=== PATIENT | female | born 1995 | race American Indian/Alaskan Native ===

== ENCOUNTER 2016-11-02 14:12 | Emergency (ER) | payer OTHER ==
[2016-11-02 19:12] LABS: Basophils % (Auto) 0.7 % (0.0-1.8); Eosinophils % (Auto) 0.2 % (0.0-4.3); Hemoglobin 11.9 gm/dl (10.1-14.3); Mean Corpuscular HGB Conc 31 % (30-34); Mean Corpuscular Hemoglobin 27 pg (28-32); Mean Corpuscular Volume 85 fl (79-97); Platelet Count 283 K/mm3 (140-440); Red Blood Count 4.47 M/mm3 (3.65-5.03); Red Cell Distribution Width 12.3 % (13.2-15.2); White Blood Count 11.3 K/mm3 (4.5-11.0)
[2016-11-02 19:28] LABS: Anion Gap 21 mmol/L; BUN/Creatinine Ratio 18.57; Blood Urea Nitrogen 13 mg/dL (7-17); Calcium 9.8 mg/dL (8.4-10.2); Carbon Dioxide 25 mmol/L (22-30); Chloride 98.5 mmol/L (98-107); Glucose 78 mg/dL (65-100); Potassium 3.5 mmol/L (3.6-5.0); Sodium 141 mmol/L (137-145)
[2016-11-02] MEDS ORDERED: MOTRIN PO ONE (19:53)
[2016-11-02] MEDS ORDERED: DUONEB 0.5 MG-3 MG/3 ML SOLN IH ONE (19:53)
--- NOTE | 2016-11-02 20:31 | Emergency Department Report ---
ED Chest Pain HPI - General Chief Complaint: Chest Pain Stated Complaint: CHEST PAIN Time Seen by Provider: 11/02/16 18:20 Source: patient Mode of arrival: Ambulatory Limitations: No Limitations - History of Present Illness Initial Comments: 21-year-old female past medical history asthma presents with complaint of 2 days of substernal chest pain. Patient states the pain is slightly worse when she takes deep breath. Denies any fever no chills denies any cough denies any shortness of breath palpitations. Patient states that pain has been constant since yesterday. Denies any trauma to chest. No nausea no vomiting no diarrhea no dysuria. Patient states she is on oral contraceptives. Onset/Timin -: days(s) Onset: during rest Pain Location: substernal Pain Radiation: none Severity: moderate Severity scale (0 -10): 5 Quality: sharp Consistency: constant Improves With: nothing Worsens With: nothing Aspirin use within the Past 7 Days: (0) No - Related Data On Oral Contraceptives: Yes Previous Rx's Medication Instructions Recorded Last Taken Type Acetaminophen/Codeine [Tylenol #3] 1 tab PO Q6H PRN #20 tab 07/09/15 Unknown Rx Cyclobenzaprine [Flexeril 10 MG 10 mg PO TID PRN #30 tablet 07/09/15 Unknown Rx TAB] Ibuprofen [Motrin] 600 mg PO Q8H PRN #50 tablet 07/09/15 Unknown Rx Albuterol Sulfate [Ventolin HFA] 2 puff IH Q4H PRN #1 hfa.aer.ad 01/03/16 Unknown Rx Azithromycin [Zithromax] 250 mg PO DAILY #1 pkg 01/03/16 Unknown Rx Fluticasone [Flonase] 2 spray NS QDAY #1 bottle 01/03/16 Unknown Rx Loratadine [Claritin] 10 mg PO DAILY #30 tablet 01/03/16 Unknown Rx Prednisone [predniSONE 10 mg 10 mg PO .TAPER #1 tab.ds.pk 01/03/16 Unknown Rx (6-Day Pack, 21 Tabs)] Promethazine /Codeine 5 ml PO Q6H PRN #150 ml 01/03/16 Unknown Rx [Phenergan/Codeine 6.25-10 mg/5 ml] ALBUTEROL Inhaler [ProAir HFA 2 puff IH QID PRN #1 inhalation 11/02/16 Unknown Rx Inhaler] Ibuprofen [Motrin] 600 mg PO Q8H PRN #30 tablet 11/02/16 Unknown Rx Allergies Allergy/AdvReac Type Severity Reaction Status Date / Time seafood Allergy Swelling Uncoded 11/02/16 14:29 ANA score - Ana Score Age > 65: (0) No Aspirin use within the Past 7 Days: (0) No 3 or more CAD Risk Factors: (0) No 2 or more Angina events in past 24 hrs: (0) No Known CAD with more than 50% Stenosis: (0) No Elevated Cardiac Markers: (0) No ST Deviation Greater than 0.5mm: (0) No ANA Score: 0 ED Review of Systems ROS: Stated complaint: CHEST PAIN Other details as noted in HPI ED Past Medical Hx - Past Medical History Hx Asthma: Yes - Social History Smoking Status: Never Smoker Substance Use Type: None - Medications Home Medications: Home Medications Medication Instructions Recorded Confirmed Last Taken Type Acetaminophen/Codeine [Tylenol #3] 1 tab PO Q6H PRN #20 tab 07/09/15 Unknown Rx Cyclobenzaprine [Flexeril 10 MG 10 mg PO TID PRN #30 tablet 07/09/15 Unknown Rx TAB] Ibuprofen [Motrin] 600 mg PO Q8H PRN #50 tablet 07/09/15 Unknown Rx Albuterol Sulfate [Ventolin HFA] 2 puff IH Q4H PRN #1 hfa.aer.ad 01/03/16 Unknown Rx Azithromycin [Zithromax] 250 mg PO DAILY #1 pkg 01/03/16 Unknown Rx Fluticasone [Flonase] 2 spray NS QDAY #1 bottle 01/03/16 Unknown Rx Loratadine [Claritin] 10 mg PO DAILY #30 tablet 01/03/16 Unknown Rx Prednisone [predniSONE 10 mg 10 mg PO .TAPER #1 tab.ds.pk 01/03/16 Unknown Rx (6-Day Pack, 21 Tabs)] Promethazine /Codeine 5 ml PO Q6H PRN #150 ml 01/03/16 Unknown Rx [Phenergan/Codeine 6.25-10 mg/5 ml] ALBUTEROL Inhaler [ProAir HFA 2 puff IH QID PRN #1 inhalation 11/02/16 Unknown Rx Inhaler] Ibuprofen [Motrin] 600 mg PO Q8H PRN #30 tablet 11/02/16 Unknown Rx ED Physical Exam - General Limitations: No Limitations General appearance: alert, in no apparent distress - Head Head exam: Present: atraumatic, normocephalic - Eye Eye exam: Present: normal appearance, PERRL, EOMI - ENT ENT exam: Present: mucous membranes moist - Neck Neck exam: Present: normal inspection - Respiratory Respiratory exam: Present: wheezes (minimal wheezing rll field, scant). Absent : respiratory distress - Cardiovascular Cardiovascular Exam: Present: regular rate, normal rhythm. Absent: systolic murmur, diastolic murmur, rubs, gallop - GI/Abdominal GI/Abdominal exam: Present: soft, normal bowel sounds - Extremities Exam Extremities exam: Present: normal inspection, full ROM - Back Exam Back exam: Present: normal inspection - Neurological Exam Neurological exam: Present: alert, oriented X3, CN II-XII intact, normal gait - Psychiatric Psychiatric exam: Present: normal affect, normal mood - Skin Skin exam: Present: warm, dry, intact, normal color. Absent: rash ED Course Vital Signs 11/02/16 11/02/16 11/02/16 14:29 20:04 20:21 Temperature 98.0 F Pulse Rate 92 H Pulse Rate [ 94 H 96 H Bilateral Throughout] Respiratory 16 Rate Respiratory 20 20 Rate [Bilateral Throughout] Blood Pressure 120/76 O2 Sat by Pulse 100 Oximetry ED Medical Decision Making - Lab Data Result diagrams: 11/02/16 18:52 11/02/16 18:52 - Medical Decision Making A/P: Chest pain 1-chest x-ray within normal limits, EKG within normal limits, BMP, CBC within normal limits 2-d-dimer negative 3-I discussed case with Dr. Elkins, patient's symptoms have improved with only DuoNeb and anti-inflammatories. Given patient's lack of risk factors for cardiac source of chest pain and normal EKG normal chest x-ray negative d-dimer will give patient help with primary care and outpatient cardiology. I emphasized the importance of follow-up to the patient, she agreed to call soon as possible follow-up appointments. 4-advised patient to return to the ED if chest pain worsens or persists despite use of NSAIDs 5-Motrin when necessary. Patient states she ran out of albuterol, I will refill her prescription. Critical care attestation.: If time is entered above; I have spent that time in minutes in the direct care of this critically ill patient, excluding procedure time. ED Disposition Clinical Impression: Chest pain on breathing Disposition: DISCHARGED TO HOME OR SELFCARE Is pt being admited?: No Does the pt Need Aspirin: No Condition: Stable Instructions: Chest Pain (ED), Costochondritis (ED) Prescriptions: ALBUTEROL Inhaler [ProAir HFA Inhaler] 2 puff IH QID PRN #1 inhalation PRN Reason: Shortness Of Breath Ibuprofen [Motrin] 600 mg PO Q8H PRN #30 tablet PRN Reason: Pain Referrals: PRIMARY CAREMD [Primary Care Provider] - 3-5 Days [facility] [Outside] - 3-5 Days JOSE ROBERTO NICHOLS MD [Referring] - 3-5 Days KAYLA BELCHER [Registered Nurse] - 3-5 Days Forms: Accompanied Note, Work/School Release Form(ED) Time of Disposition: 21:10
[2016-11-02 21:37] VITALS: BP 123/76
--- NOTE | 2016-11-03 07:22 | XRay Report ---
ROUTINE CHEST, TWO VIEWS: HISTORY: chest pain. The trachea, heart, mediastinal contour, lung dumont and bony thorax are unremarkable. IMPRESSION: Unremarkable chest x-ray. No change since 08/26/14.
== END 2016-11-02 21:38 | disposition home or self-care (01) ==
LOC: ED 14:12
DX: R07.2 Precordial pain (principal); J45.909 Unspecified asthma, uncomplicated; Z91.013 Allergy to seafood
CPT/HCPCS: 36415; 71020; 80048; 81025; 85025; 85379; 93005; 93010; 94640

== ENCOUNTER 2017-12-03 20:34 | Emergency (ER) | payer OTHER ==
--- NOTE | 2017-12-03 21:32 | XRay Report ---
FINAL REPORT PROCEDURE: XR CHEST ROUTINE 2V TECHNIQUE: PA and lateral chest radiographs were obtained. CPT 35527 HISTORY: shortness of breath COMPARISON: No prior studies are available for comparison. FINDINGS: Heart: Normal. Mediastinum/Vessels: Normal. Lungs/Pleural space: A small patchy density is noted in the lingula obscuring the left cardiac border. Right lung and bilateral pleural spaces are clear.. Bony thorax: No acute osseous abnormality. Other: IMPRESSION: A patchy density in the lingula most likely represents a atelectatic versus early infiltrative change. Follow-up studies are recommended..
[2017-12-03 21:54] LABS: Basophils # (Auto) 0.1 K/mm3 (0.0-0.1); Basophils % (Auto) 0.7 % (0.0-1.8); Eosinophils # (Auto) 0.2 K/mm3 (0.0-0.4); Eosinophils % (Auto) 2.4 % (0.0-4.3); Hematocrit 33.9 % (30.3-42.9); Hemoglobin 10.9 gm/dl (10.1-14.3); Lymphocytes # (Auto) 0.4 K/mm3 (1.2-5.4); Lymphocytes % (Auto) 4.5 % (13.4-35.0); Mean Corpuscular HGB Conc 32 % (30-34); Mean Corpuscular Hemoglobin 27 pg (28-32); Mean Corpuscular Volume 82 fl (79-97); Monocytes # (Auto) 0.3 K/mm3 (0.0-0.8); Monocytes % (Auto) 3.6 % (0.0-7.3); Platelet Count 347 K/mm3 (140-440); Red Blood Count 4.12 M/mm3 (3.65-5.03); Red Cell Distribution Width 12.9 % (13.2-15.2)
[2017-12-03 22:06] LABS: BUN/Creatinine Ratio 10; Blood Urea Nitrogen 10 mg/dL (7-17); Calcium 9.7 mg/dL (8.4-10.2); Hemolysis Index 2
[2017-12-03] MEDS ORDERED: TYLENOL ONE (23:19)
[2017-12-03] MEDS ORDERED: TYLENOL PO ONE (23:31)
[2017-12-04] MEDS ORDERED: DELTASONE ONE (00:14)
[2017-12-04] MEDS ORDERED: DELTASONE PO ONE (00:15)
[2017-12-04] MEDS ORDERED: DUONEB *Not for PRN Use IH ONE (00:15)
[2017-12-04] MEDS ORDERED: GUAIFENESIN DM SYRUP PO ONE (00:15)
[2017-12-04] MEDS ORDERED: ZITHROMAX PO ONE (00:18)
[2017-12-04] MEDS ORDERED: ATIVAN IV ONE (01:21)
[2017-12-04] MEDS ORDERED: NACL 0.9% 1000 ML 2,000 ML IV ONE (01:21)
--- NOTE | 2017-12-04 01:21 | Emergency Department Report ---
HPI - General Chief Complaint: Chest Pain Time Seen by Provider: 12/04/17 00:15 - HPI HPI: The patient's 22-year-old female presents for evaluation of cough and dyspnea. The patient has a history of asthma. The patient reports a nonproductive cough and dyspnea since this morning, greater than 12 hours prior to my evaluation. Her dyspnea has been constant since onset, moderate in severity, exacerbated with exertion or coughing, improved with albuterol inhaler. The patient denies fever, chest pain, syncope, orthopnea, hemoptysis, unilateral leg swelling, oral contraceptive use, recent immobilization, history of DVT or PE, recent cancer. ED Past Medical Hx - Past Medical History Hx Asthma: Yes - Surgical History Past Surgical History?: No - Social History Smoking Status: Never Smoker Substance Use Type: None - Medications Home Medications: Home Medications Medication Instructions Recorded Confirmed Last Taken Type Acetaminophen/Codeine [Tylenol #3] 1 tab PO Q6H PRN #20 tab 07/09/15 Unknown Rx Cyclobenzaprine [Flexeril 10 MG 10 mg PO TID PRN #30 tablet 07/09/15 Unknown Rx TAB] Ibuprofen [Motrin] 600 mg PO Q8H PRN #50 tablet 07/09/15 Unknown Rx Albuterol Sulfate [Ventolin HFA] 2 puff IH Q4H PRN #1 hfa.aer.ad 01/03/16 Unknown Rx Azithromycin [Zithromax] 250 mg PO DAILY #1 pkg 01/03/16 Unknown Rx Fluticasone [Flonase] 2 spray NS QDAY #1 bottle 01/03/16 Unknown Rx Loratadine [Claritin] 10 mg PO DAILY #30 tablet 01/03/16 Unknown Rx Prednisone [predniSONE 10 mg 10 mg PO .TAPER #1 tab.ds.pk 01/03/16 Unknown Rx (6-Day Pack, 21 Tabs)] Promethazine /Codeine 5 ml PO Q6H PRN #150 ml 01/03/16 Unknown Rx [Phenergan/Codeine 6.25-10 mg/5 ml] ALBUTEROL Inhaler [ProAir HFA 2 puff IH QID PRN #1 inhalation 11/02/16 Unknown Rx Inhaler] Ibuprofen [Motrin] 600 mg PO Q8H PRN #30 tablet 11/02/16 Unknown Rx ALBUTEROL Inhaler [ProAir HFA 2 puff IH QID PRN #1 inhalation 12/04/17 Unknown Rx Inhaler] Azithromycin [Zithromax Z-LAMINE] 250 mg PO QDAY #6 tablet 12/04/17 Unknown Rx Benzonatate [Tessalon Perles] 100 mg PO Q8HR #20 capsule 12/04/17 Unknown Rx predniSONE [Deltasone] 20 mg PO QDAY #5 tab 12/04/17 Unknown Rx ED Review of Systems ROS: Stated complaint: CHEST PAIN Other details as noted in HPI Constitutional: denies: fever ENT: denies: throat or neck pain Respiratory: reports cough, shortness of breath Cardiovascular: denies: chest pain Endocrine: denies unexplained weight loss or gain Gastrointestinal: denies: abdominal pain, nausea Genitourinary: denies: dysuria Musculoskeletal: denies: leg swelling Skin: denies: rash Neurological: denies: headache Hematological/Lymphatic: denies: easy bleeding or easy bruising Psych: denies sadness or hopelessness Physical Exam - Physical Exam Vital Signs: Vital Signs 12/03/17 12/03/17 12/04/17 20:46 23:35 00:30 Temperature 100.1 F H Pulse Rate 139 H Pulse Rate [ 114 H Anterior Bilateral Throughout] Respiratory 20 20 Rate Respiratory 20 Rate [Anterior Bilateral Throughout] Blood Pressure 126/90 O2 Sat by Pulse 99 Oximetry Physical Exam: General: well-nourished, well-developed, no acute distress Head: Normocephalic, atraumatic Eyes: normal sclera ENT: Mucous membranes are pink and moist Neck: trachea midline, neck supple, No neck stiffness, no cervical adenopathy Respiratory: Diminished breath sounds and wheezing present to a medical office bilaterally Cardio: S1 and S2 present, no murmurs, rubs, gallops, capillary refill is brisk Abdomen: Normoactive bowel sounds, soft abdomen, no rigidity, no guarding or rebound tenderness Musc: No pitting edema Skin: No rash Neuro: no facial drooping, normal speech Psych: Normal affect ED Course Vital Signs 12/03/17 12/03/17 12/04/17 20:46 23:35 00:30 Temperature 100.1 F H Pulse Rate 139 H Pulse Rate [ 114 H Anterior Bilateral Throughout] Respiratory 20 20 Rate Respiratory 20 Rate [Anterior Bilateral Throughout] Blood Pressure 126/90 O2 Sat by Pulse 99 Oximetry ED Medical Decision Making - Lab Data Result diagrams: 12/03/17 21:32 12/03/17 21:32 - Medical Decision Making The patient was seen and examined by myself. The patient is placed on a microbiology analyst and continuous pulse ox. On initial evaluation, the patient was found to be in no distress. Evaluation orders were placed. The patient is given a breathing treatment and steroids for txt of her asthma exacerbation. The patient is given 2 L normal saline fluid bolus for treatment of her dehydration. Chest x-ray exhibits potential early left lingula infiltrate, and is negative for focal lobar consolidation, pleural effusions, pulmonary congestion, pneumothorax, or other emergent cardio pulmonary disease process. Lab results are reassuring including normal WBC. The patient is given azithromycin for treatment of potential walking pneumonia. The patient was reevaluated and reported that their symptoms were markedly improved. On reexamination the patient is found to have normal respiratory rate and O2 sat on pulse oximetry, with no costal retractions or diminishment of breath sounds on auscultation. The patient is stable for discharge with outpatient follow- up. The patient is given follow-up and return instructions. The patient expressed understanding and agreed with the plan. The patient is discharged in stable condition. Critical care attestation.: If time is entered above; I have spent that time in minutes in the direct care of this critically ill patient, excluding procedure time. ED Disposition Clinical Impression: Dehydration Asthma with acute exacerbation in adult Qualifiers: Asthma severity: mild Asthma persistence: intermittent Qualified Code(s): J45.21 - Mild intermittent asthma with (acute) exacerbation Pneumonia Qualifiers: Pneumonia type: due to unspecified organism Laterality: left Lung location: lower lobe of lung Qualified Code(s): J18.1 - Lobar pneumonia, unspecified organism Disposition: OP ADMIT IP TO THIS HOSP Is pt being admited?: No Does the pt Need Aspirin: No Condition: Stable Instructions: Asthma (ED), Community-acquired Pneumonia (ED) Prescriptions: ALBUTEROL Inhaler [ProAir HFA Inhaler] 2 puff IH QID PRN #1 inhalation PRN Reason: Shortness Of Breath Azithromycin [Zithromax Z-LAMINE] 250 mg PO QDAY #6 tablet Benzonatate [Tessalon Perles] 100 mg PO Q8HR #20 capsule predniSONE [Deltasone] 20 mg PO QDAY #5 tab Referrals: CARLITO HENRY MD [Primary Care Provider] - 3-5 Days Time of Disposition: 01:19
[2017-12-04 06:43] VITALS: BP 121/48
[2017-12-04] MEDS ORDERED: DUONEB *Not for PRN Use IH SCH (08:00)
== END 2017-12-04 06:40 | disposition admitted as inpatient to this hospital (09) ==
LOC: ED 20:34
DX: J45.21 Mild intermittent asthma with (acute) exacerbation (principal); J18.1 Lobar pneumonia, unspecified organism; E86.0 Dehydration; Z91.013 Allergy to seafood
CPT/HCPCS: 36415; 71046; 80048; 85025; 87040; 93005; 93010; 94640; 96361; 96374; 99285; J2060; J7030; J7512

== ENCOUNTER 2019-03-07 17:01 | Outpatient (CLI) | payer OTHER ==
[2019-03-07] MEDS ORDERED: LACTATED RINGERS 500 ML IV ONE (17:46)
[2019-03-07 19:42] VITALS: BP 103/55
[2019-03-07 20:43] LABS: Bilirubin,Urine NEG (Negative); Blood,Urine NEG (Negative); Color,Urine Colorless (Yellow); Protein,Urine <15 mg/dL mg/dL (Negative); Urobilinogen,Urine < 2.0 mg/dL (<2.0); WBC,Urine < 1.0 /HPF (0.0-6.0)
--- NOTE | 2019-03-08 07:21 | Ultrasound Report ---
PROCEDURE: US OB LIMITED TECHNIQUE: A limited transabdominal OB sonogram was obtained for evaluation of the KAROLINE and pre sentation. HISTORY: decreased movement COMPARISONS: None FINDINGS: The fetus is in cephalic presentation. The KAROLINE is 10.3 cm which is normal. The heart rate is 15 0 BPM. IMPRESSION: The KAROLINE is 10.3 cm which is normal. Cephalic presentation.. This document is electronically signed by Kane Del Cid MD., March 08 2019 07:19:42 AM ET
--- NOTE | 2019-03-08 07:21 | Ultrasound Report ---
PROCEDURE: US OB BPP WO NON-STRESS TECHNIQUE: A limited transabdominal OB sonogram was obtained for evaluation of the biophysical profi le. HISTORY: decreased movement COMPARISONS: None FINDINGS: For breathing movements, a score of 2 out of 2 was obtained. For movements, a score of 2 out of 2 was obtained. For posture and tone, a score of 2 out of 2 was obtained. Qualitative amniotic fluid volume, a score of 2 out of 2 was obtained. The heart rate is 150 BPM. IMPRESSION: Biophysical profile score is 8 out of 8. The heart rate is 150 BPM.. This document is electronically signed by Kane Del Cid MD., March 08 2019 07:18:50 AM ET
== END 2019-03-07 22:25 | disposition home or self-care (01) ==
LOC: TRG 17:01 → LD 17:29 → TRG 22:25
PROVIDERS: ATTEND Obstetrics & Gynecology
DX: O36.8130 Decreased fetal movements, third trimester, not applicable or unspecified (principal); O47.03 False labor before 37 completed weeks of gestation, third trimester; O99.513 Diseases of the respiratory system complicating pregnancy, third trimester; J45.909 Unspecified asthma, uncomplicated; Z3A.35 35 weeks gestation of pregnancy
CPT/HCPCS: 59025; 76815; 76819; 81001; J7120; 96360

== ENCOUNTER 2019-04-09 17:32 | Outpatient (CLI) | payer OTHER ==
[2019-04-09 18:14] VITALS: BP 115/73
--- NOTE | 2019-04-09 19:52 | Ultrasound Report ---
Limited OB Ultrasound with biophysical profile HISTORY: Here to evaluate well-being. TECHNIQUE: Grayscale and color Doppler imaging performed. COMPARISON: FINDINGS: There is a single intrauterine gestation which is cephalic in presentation. Heart rate is 1 31 bpm the KAROLINE is 11.7. The fetus and pelvis were not further evaluated on this exam. On biophysical profile, the fetus received a score of 2 for breathing movement, movement, posture and tone, and qualitative amniotic fluid volume. Total score was 8 out of 8. IMPRESSION: 1. Single viable intrauterine gestation on this limited OB ultrasound. 2. Normal biophysical profile. Signer Name: Pipo Sr MD Signed: 04/09/2019 7:48 PM Workstation Name: [id number]
--- NOTE | 2019-04-09 20:16 | Ultrasound Report ---
Limited OB ultrasound INDICATION: Amniotic fluid index FINDINGS: There is a single intrauterine in a cephalic presentation. heart rate is 13 1 bpm. The amniotic fluid index is 11.7 cm which is within the normal range. Signer Name: Srinivasa Turner MD Signed: 04/09/2019 8:12 PM Workstation Name: [id number]
== END 2019-04-09 20:01 | disposition home or self-care (01) ==
LOC: TRG 17:32
PROVIDERS: ATTEND Obstetrics & Gynecology
DX: O47.1 False labor at or after 37 completed weeks of gestation (principal); Z3A.40 40 weeks gestation of pregnancy
CPT/HCPCS: 59025; 76815; 76819

== ENCOUNTER 2019-04-11 23:19 | Inpatient (IN) | payer OTHER ==
[2019-04-12] MEDS: STADOL IV PRN ×2 (00:31→02:35)
[2019-04-12] MEDS ORDERED: LACTATED RINGERS 1,000 ML IV SCH ×2 (01:00→06:00)
[2019-04-12 01:28] LABS: Hematocrit 32.8 % (30.3-42.9); Hemoglobin 10.9 gm/dl (10.1-14.3); Mean Corpuscular HGB Conc 33 % (30-34); Mean Corpuscular Volume 87 fl (79-97); Platelet Count 166 K/mm3 (140-440); Red Blood Count 3.78 M/mm3 (3.65-5.03)
[2019-04-12] MEDS ORDERED: PITOCin/NS 20 UNIT/1000ML DRIP 20,000 MILLIUNITS/1,000 ML BAG IV ONE (03:51)
[2019-04-12] MEDS ORDERED: SUBLIMAZE ONE (04:26)
[2019-04-12] MEDS ORDERED: SUBLIMAZE IV ONE (04:29)
[2019-04-12] MEDS ORDERED: XYLOCAINE 2% INFILTRATI ONE ×2 (05:22→05:41)
--- NOTE | 2019-04-12 05:31 | History and Physical Report ---
History of Present Illness Date of examination: 04/12/19 Date of admission: 04/11/19 23:41 Chief complaint: Labor History of present illness: Pt is a 24yo BF EDC 04/08/19; EGA 40 4/7 weeks presents to L&D complaining of RUC's q 3-4 mins. She denies ROM or bleeding. She received late care at [facility] since 22 weeks and course was unremarkable except for anemia. records are available and GBS is Negative. Past History Past Medical History: asthma Past Surgical History: no surgical history Family/Genetic History: none Social history: no significant social history, single - Obstetrical History Expected Date of Delivery: 04/08/19 Actual Gestation: 40 Week(s) 4 Day(s) : 2 Medications and Allergies Allergies Allergy/AdvReac Type Severity Reaction Status Date / Time seafood Allergy Swelling Uncoded 11/02/16 14:29 Home Medications Medication Instructions Recorded Confirmed Last Taken Type Albuterol Sulfate [Proair 90 mcg IH PRN PRN 03/07/19 03/07/19 Unknown History Respiclick] Cholecalciferol (Vitamin D3) 1 tab PO QWEEK 03/07/19 03/07/19 03/06/19 History [Vitamin D3 50,000UNIT CAP] Ferrous Sulfate [Feosol 325 MG tab] 1 tab PO BID 03/07/19 03/07/19 03/07/19 History Prednisone [predniSONE 10 mg 1 tab PO WMHS 03/07/19 03/07/19 03/07/19 13:30 History (6-Day Pack, 21 Tabs)] Vit-Fe Fumar-FA [ 1 tab PO QDAY 03/07/19 03/07/19 03/07/19 History Vitamin] Active Meds: Active Medications Butorphanol Tartrate (Stadol) 2 mg IV Q2H PRN PRN Reason: Labor Pain Last Admin: 04/12/19 02:35 Dose: 2 mg Documented by: Lactated Ringer's (Lactated Ringers) 1,000 mls @ 125 mls/hr IV DIRECT NINI Last Admin: 04/12/19 00:31 Dose: 125 mls/hr Documented by: Review of Systems All systems: negative - Vital Signs Vital signs: Vital Signs Temp Resp 97.9 F 14 04/12/19 00:30 04/12/19 00:30 Temp Pulse Resp BP Pulse Ox 97.7 F 76 14 126/77 04/12/19 03:22 04/12/19 02:35 04/12/19 03:22 04/12/19 02:35 - Physical Exam Breasts: Positive: deferred Cardiovascular: Regular rate Lungs: Positive: Clear to auscultation Abdomen: Positive: normal appearance Genitourinary (Female): Positive: normal external genitalia Uterus: Positive: enlarged Extremities: Positive: normal - Obstetrical FHR: category 1 Uterine Contraction Monitor Mode: External Cervical Dilatation: 8 Cervical Effacement Percentage: 100 station: 0 Uterine Contraction Pattern: Regular Uterine Tone Measurement Phase: Contraction Uterine Contraction Intensity: Strong/Firm Results Result Diagrams: 04/12/19 01:04 All other labs normal. Assessment and Plan - Patient Problems (1) 40 weeks gestation of Onset Date: 04/12/19 Current Visit: Yes Status: Acute Plan to address problem: A: IUP @ 40 4/7 weeks in labor P: Admit to L&D for expectant vaginal delivery
--- NOTE | 2019-04-12 05:32 | Procedure Note ---
OB Delivery Note - Delivery Date of Delivery: 04/12/19 Surgeon: MARCI MÉNDEZ Estimated blood loss: 200cc - Vaginal Delivery presentation: vertex Delivery position: OA Intrapartum events: none Delivery induction: none Delivery augmentation: rupture of membranes Delivery monitor: external FHT, external uterine Route of delivery: Delivery placenta: spontaneous Delivery cord: 3 umbilical vessels Episiotomy: none Delivery laceration: 2nd degree (perineal) Delivery repair: vicryl Anesthesia: local Delivery comments: delivered OA and placed on Mom's chest for [id number] bonding and delayed cord clamping, cut by Grandma - A at 1 minute: 8 at 5 minutes: 9 Infant Gender: Male (3106gms)
[2019-04-12] MEDS ORDERED: BRETHINE IVP PRN (05:41)
[2019-04-12] MEDS ORDERED: MINERAL OIL PO PRN (05:41)
[2019-04-12] MEDS ORDERED: BRETHINE SUB-Q PRN (05:41)
[2019-04-12] MEDS ORDERED: PHENERGAN PR PRN (05:44)
[2019-04-12] MEDS ORDERED: BENADRYL PO PRN (05:44)
[2019-04-12] MEDS ORDERED: TUCKS PAD TP PRN (05:44)
[2019-04-12] MEDS ORDERED: DULCOLAX PR PRN (05:44)
[2019-04-12] MEDS ORDERED: PHENERGAN PO PRN (05:44)
[2019-04-12] MEDS ORDERED: LANSINOH TP PRN (05:44)
[2019-04-12] MEDS ORDERED: NORCO 5/325 PO PRN (05:44)
[2019-04-12] MEDS ORDERED: MILK OF MAGNESIA PO PRN (05:44)
[2019-04-12] MEDS ORDERED: ZOFRAN IV PRN (05:44)
[2019-04-12] MEDS ORDERED: TYLENOL PO PRN (05:44)
[2019-04-12] MEDS ORDERED: PITOCin/NS 20 UNIT/1000ML DRIP 20 UNITS/1,000 ML BAG IV SCH ×2 (06:00)
[2019-04-12] MEDS ORDERED: SODIUM CHLORIDE FLUSH SYRINGE 10 ML IV NR (06:00)
[2019-04-12] MEDS ORDERED: PITOCin/NS 30 UNIT/500ML 30 UNITS/500 ML BAG IV SCH (06:00)
[2019-04-12] MEDS: IBUPROFEN PO SCH (14:02)
[2019-04-12 17:39] LABS: Hematocrit 30.3 % (30.3-42.9); Hemoglobin 10.1 gm/dl (10.1-14.3)
[2019-04-12] MEDS: COLACE PO SCH (21:42)
[2019-04-12] MEDS: FEOSOL PO SCH (21:42)
[2019-04-13] MEDS: IBUPROFEN PO SCH ×5 (00:05→19:36)
[2019-04-13] MEDS ORDERED: M-M-R II VACCINE SUB-Q ONE (06:00)
[2019-04-13] MEDS ORDERED: BOOSTRIX IM ONE (06:00)
--- NOTE | 2019-04-13 08:56 | Progress Note ---
Assessment and Plan A: day 1 S/P spontaneous vaginal delivery. Anemia secondary to and blood loss. P: Iron supplementation. Encouraged ambulation. Subjective - Subjective Date of service: 04/13/19 Principal diagnosis: day 1 S/P spontaneous vaginal delivery Interval history: day 1 S/P spontaneous vaginal delivery. Doing well. Reports small amount of lochia. Voiding without difficulty, ambulating well, tolerating a regular diet. Patient denies headache, chest pain, cough, shortness of breath, leg pain, abdominal pain, or heavy bleeding. Patient reports: appetite normal, voiding normally, pain well controlled, flatus, ambulating normally, no dizzy ambulation, no nauseated [place]: doing well Objective - Vital Signs Latest vital signs: Vital Signs Temp Pulse Resp BP Pulse Ox 04/12/19 23:50 98.5 F 84 20 103/52 99 04/12/19 20:09 98.5 F 85 20 122/81 100 04/12/19 16:50 97.9 F 86 16 106/71 99 Intake and Output 04/12/19 04/13/19 04/13/19 23:59 07:59 15:59 Intake Total 240 Balance 240 Intake: Oral 240 Other: Total, Intake Amount 240 # Voids Void 1 - Exam Abdomen: Present: normal appearance, soft. Absent: distention, tenderness, guarding, rigidity Uterus: Present: normal, firm, fundal height below umbilicus. Absent: bogginess, tenderness Extremities: Present: normal. Absent: tenderness, edema
[2019-04-13] MEDS: COLACE PO SCH ×2 (09:06→21:03)
[2019-04-13] MEDS: PRENATAL VITAMIN PO SCH (09:06)
[2019-04-13] MEDS: FEOSOL PO SCH ×2 (09:06→21:03)
[2019-04-14] MEDS: IBUPROFEN PO SCH ×3 (00:13→12:13)
[2019-04-14 09:57] VITALS: BP 103/60
[2019-04-14] MEDS: PRENATAL VITAMIN PO SCH (10:17)
[2019-04-14] MEDS: FEOSOL PO SCH (10:17)
[2019-04-14] MEDS: COLACE PO SCH (12:12)
--- NOTE | 2019-04-14 15:15 | Progress Note ---
Assessment and Plan A: day 2 S/P spontaneous vaginal delivery. Anemia secondary to and blood loss. P: Discharge patient home today. discharge instructions and warning signs discussed with patient. Advised patient to continue taking vitamins and iron at home. Advised patient to avoid driving, lifting, heavy housework, and intercourse. Advised patient to follow up at [facility] in 6 weeks (advised patient to call office tomorrow to obtain an appointment). The following Rx were called to [facility] pharmacy on [address] and left on the voice mail: Motrin 800 mg, #30, 1 po every 8 hours prn pain, 0 RF; Ferrous Sulfate 325 mg, #30, 1 po BID, 0 RF; Vitamins, #30, 1 po daily, 0 RF. Patient voiced understanding of all instructions. Subjective - Subjective Date of service: 04/14/19 Principal diagnosis: day 2 S/P spontaneous vaginal delivery Interval history: day 2 S/P spontaneous vaginal delivery. Doing well. Reports small amount of lochia. Patient wants to go home today. Voiding without difficulty, ambulating well, tolerating a regular diet. Patient denies headache, dizziness, chest pain, cough, shortness of breath, leg pain, abdominal pain, heavy bleeding, symptoms of depression. Patient reports: appetite normal, voiding normally, pain well controlled, ambulating normally, no dizzy ambulation, no nauseated [place]: doing well Objective - Vital Signs Latest vital signs: Vital Signs Temp Pulse Resp BP BP Pulse Ox 04/14/19 09:08 97.7 F 89 16 103/60 99 04/14/19 00:23 98.9 F 66 20 119/73 100 04/13/19 16:30 98.2 F 78 20 104/68 Intake and Output 04/13/19 04/14/19 04/14/19 23:59 07:59 15:59 Intake Total 600 240 Balance 600 240 Intake: Oral 600 240 Other: Total, Intake Amount 240 240 # Voids Void 1 1 - Exam Cardiovascular: Present: Regular rate, Normal S1, Normal S2, No murmurs Lungs: Present: Clear to auscultation Abdomen: Present: normal appearance, soft, normal bowel sounds. Absent: distention, tenderness, guarding, rigidity Uterus: Present: normal, firm, fundal height below umbilicus. Absent: bogginess, tenderness Extremities: Present: normal. Absent: tenderness, edema
--- NOTE | 2019-04-14 15:18 | Discharge Summary ---
Providers - Providers Date of Admission: 04/11/19 23:41 Date of discharge: 04/14/19 Attending physician: SHARON HIGGINBOTHAM MD None Primary care physician: SHARON HIGGINBOTHAM MD Hospitalization Reason for admission: active labor Delivery: Episiotomy: none Laceration: none Other procedures: none complications: none Discharge diagnosis: IUP at term delivered baby: male Pertinent studies: Labs Hospital course: Normal hospital course. Condition at discharge: Good Disposition: DC-01 TO HOME OR SELFCARE - Discharge Diagnoses (1) Term delivered Status: Acute (2) Anemia due to blood loss Status: Acute Plan - Provider Discharge Summary Activity: routine, no sex for 6 weeks, no heavy lifting 4 weeks, no strenuous exercise Diet: routine Instructions: routine Additional instructions: Call your doctor immediately for: * Fever > 100.5 * Heavy vaginal bleeding ( >1 pad per hour) * Severe persistent headache * Shortness of breath * Reddened, hot, painful area to leg or breast - Follow up plan Follow up: SHARON HIGGINBOTHAM MD [Primary Care Provider] - 6 Weeks () Forms: [facility] Discharge Summary
== END 2019-04-14 15:48 | disposition home or self-care (01) | DRG 775 ==
LOC: TRG 23:19 → LD 23:41 → OB 04-12 07:39
PROVIDERS: ADMIT Obstetrics & Gynecology; ATTEND Obstetrics & Gynecology
PROC: 10E0XZZ Delivery of Products of Conception, External Approach (ICD-10-PCS; principal; 2019-04-12)
PROC: 0KQM0ZZ Repair Perineum Muscle, Open Approach (ICD-10-PCS; 2019-04-12)
PROC: 3E0234Z Introduction of Serum, Toxoid and Vaccine into Muscle, Percutaneous Approach (ICD-10-PCS; 2019-04-13)
DX: O99.52 Diseases of the respiratory system complicating childbirth (principal); J45.909 Unspecified asthma, uncomplicated; O70.1 Second degree perineal laceration during delivery; O99.02 Anemia complicating childbirth; D50.0 Iron deficiency anemia secondary to blood loss (chronic); Z3A.40 40 weeks gestation of pregnancy; Z37.0 Single live birth; Z23 Encounter for immunization; Z91.013 Allergy to seafood; Z79.899 Other long term (current) drug therapy
CPT/HCPCS: 36415; 85014; 85018; 85027; 86592; 86850; 86900; 86901; 90707; G0378; J0595; J2590; J3010; J7120

== ENCOUNTER 2020-12-31 19:45 | Emergency (ER) | payer SELFPAY ==
[2020-12-31 20:42] LABS: Bilirubin,Urine NEG (Negative); Blood,Urine NEG (Negative); Color,Urine Yellow (Yellow); Mucus,Urine FEW /HPF; Protein,Urine <15 mg/dL mg/dL (Negative); RBC,Urine < 1.0 /HPF (0.0-6.0); Urobilinogen,Urine < 2.0 mg/dL (<2.0)
[2020-12-31 20:48] LABS: HCG Qualitative,Urine Negative (Negative)
[2020-12-31] MEDS ORDERED: SODIUM CHLORIDE 0.9% 1000 ML 1,000 ML IV ONE (22:45)
[2020-12-31] MEDS ORDERED: HYDROmorphone 1 MG/1 ML INJ IV ONE (22:45)
--- NOTE | 2020-12-31 22:46 | Emergency Department Report ---
ED Abdominal Pain HPI - General Chief Complaint: Abdominal Pain Stated Complaint: PELVIC AND ABD PAIN PUI?: No Time Seen by Provider: 12/31/20 22:42 Source: patient Mode of arrival: Ambulatory Limitations: No Limitations - History of Present Illness Initial Comments: Patient is a 25-year-old female presents emergency room with complaints of right lower quadrant pain. Patient states the pain started today at 1:15 PM. Patient states the pain is worsening. Patient states the pain is 10 out of 10. Patient states the pain is worse with movement and better with rest. Patient denies vaginal discharge. Patient denies fever and chills. Patient denies nausea and vomiting. Patient states her last menstrual period was December 08. Patient states she is not been sexually active for several months. Patient states the pain is constant. Patient denies cough. Patient denies diarrhea. Patient denies recent travel. Patient denies recent international travel. Patient denies exposure to the novel coronavirus. Patient denies sick contacts. Patient denies fever and chills. Patient denies cough. Patient denies diarrhea. Patient denies coming in contact with anybody with symptoms of the novel coronavirus. MD Complaint: abdominal pain -: Sudden Location: LLQ Radiation: none Migration to: no migration Severity: severe Severity scale (0 -10): 10 Quality: stabbing Consistency: constant Improves With: rest Worsens With: movement Associated Symptoms: dysuria. denies: nausea, vomiting, diarrhea, fever, chills, constipation, hematemesis, hematochezia, melena, hematuria, anorexia, syncope - Related Data LMP (females 10-50): 3 weeks Home Medications Medication Instructions Recorded Confirmed Last Taken Albuterol Sulfate [Proair 90 mcg IH PRN PRN 03/07/19 04/14/19 Unknown Respiclick] Cholecalciferol (Vitamin D3) 1 tab PO QWEEK 03/07/19 04/14/19 03/06/19 [Vitamin D3 50,000UNIT CAP] Ferrous Sulfate [Feosol 325 MG tab] 1 tab PO BID 03/07/19 04/14/19 03/07/19 Prednisone [predniSONE 10 mg 1 tab PO [facility]HS 03/07/19 04/14/19 03/07/19 13:30 (6-Day Pack, 21 Tabs)] Vit-Fe Fumar-FA [ 1 tab PO QDAY 03/07/19 04/14/19 03/07/19 Vitamin] Previous Rx's Medication Instructions Recorded Last Taken Type Acetaminophen/Codeine [Tylenol 1 tab PO Q6H PRN #10 tab 01/01/21 Unknown Rx /Codeine # 3 tab] Doxycycline Hyclate [Doxycycline 100 mg PO Q12HR 14 Days #28 tab 01/01/21 Unknown Rx Hyclate TAB] Allergies Allergy/AdvReac Type Severity Reaction Status Date / Time seafood Allergy Swelling Uncoded 11/02/16 14:29 ED Review of Systems ROS: Stated complaint: PELVIC AND ABD PAIN Other details as noted in HPI Constitutional: denies: chills, fever Eyes: denies: eye pain, eye discharge, vision change ENT: denies: ear pain, throat pain Respiratory: denies: cough, shortness of breath, wheezing Cardiovascular: denies: chest pain, palpitations Endocrine: no symptoms reported Gastrointestinal: as per HPI, abdominal pain. denies: nausea, diarrhea Genitourinary: as per HPI, dysuria. denies: discharge Musculoskeletal: denies: back pain, joint swelling, arthralgia Skin: denies: rash, lesions Neurological: denies: headache, weakness, paresthesias Psychiatric: denies: anxiety, depression Hematological/Lymphatic: denies: easy bleeding, easy bruising ED Past Medical Hx - Past Medical History Previous Medical History?: Yes Hx Hypertension: No Hx Diabetes: No Hx Deep Vein Thrombosis: No Hx Renal Disease: No Hx Sickle Cell Disease: No Hx Seizures: Yes (r/t cyst on left ovary ,cyst removed 2017) Hx Asthma: Yes (inhaler as needed) Hx HIV: No - Surgical History Past Surgical History?: Yes Additional Surgical History: Lt ovarian cyst removal - Family History Family history: no significant - Social History Smoking Status: Never Smoker Substance Use Type: None - Medications Home Medications: Home Medications Medication Instructions Recorded Confirmed Last Taken Type Albuterol Sulfate [Proair 90 mcg IH PRN PRN 03/07/19 04/14/19 Unknown History Respiclick] Cholecalciferol (Vitamin D3) 1 tab PO QWEEK 03/07/19 04/14/19 03/06/19 History [Vitamin D3 50,000UNIT CAP] Ferrous Sulfate [Feosol 325 MG tab] 1 tab PO BID 03/07/19 04/14/19 03/07/19 History Prednisone [predniSONE 10 mg 1 tab PO [facility]HS 03/07/19 04/14/19 03/07/19 13:30 History (6-Day Pack, 21 Tabs)] Vit-Fe Fumar-FA [ 1 tab PO QDAY 03/07/19 04/14/19 03/07/19 History Vitamin] Acetaminophen/Codeine [Tylenol 1 tab PO Q6H PRN #10 tab 01/01/21 Unknown Rx /Codeine # 3 tab] Doxycycline Hyclate [Doxycycline 100 mg PO Q12HR 14 Days #28 tab 01/01/21 Unknown Rx Hyclate TAB] ED Physical Exam - General Limitations: No Limitations General appearance: alert, in no apparent distress - Head Head exam: Present: atraumatic, normocephalic - Eye Eye exam: Present: normal appearance - ENT ENT exam: Present: mucous membranes moist - Neck Neck exam: Present: normal inspection - Respiratory Respiratory exam: Present: normal lung sounds bilaterally. Absent: respiratory distress - Cardiovascular Cardiovascular Exam: Present: regular rate, normal rhythm. Absent: systolic murmur, diastolic murmur, rubs, gallop - GI/Abdominal GI/Abdominal exam: Present: soft, tenderness (Right lower quadrant tenderness.), normal bowel sounds - Extremities Exam Extremities exam: Present: normal inspection - Back Exam Back exam: Present: normal inspection - Neurological Exam Neurological exam: Present: alert, oriented X3 - Psychiatric Psychiatric exam: Present: normal affect, normal mood - Skin Skin exam: Present: warm, dry, intact, normal color. Absent: rash ED Course Vital Signs 12/31/20 19:50 Temperature 98.7 F Pulse Rate 93 H Respiratory 18 Rate Blood Pressure 141/77 O2 Sat by Pulse 99 Oximetry - Reevaluation(s) Reevaluation #1: Patient states she is feeling better. I discussed all results and clinical findings with patient. I discussed plan of care with patient. Patient agrees with plan of care. Patient is stable for discharge. Patient will be discharged home. Patient given discharge instructions. Patient voiced understanding of discharge instructions. 01/01/21 03:35 ED Medical Decision Making - Lab Data Result diagrams: 12/31/20 23:04 12/31/20 23:04 - Radiology Data Radiology results: report reviewed CT abdomen pelvis w con INDICATION: Patient complains of R.L.Q. abdominal pain. TECHNIQUE: All CT scans at this location are performed using CT dose reduction for ALARA by means of automated exposure control. COMPARISON: None available. FINDINGS: Lung bases are clear of acute disease. Liver, gallbladder, spleen, pancreas, kidneys and adrenals appear negative. Abdominal aorta is normal in size. No adenopathy. Pelvis Normal appendix. Moderate free fluid in the lower pelvis, with indistinct margins of the uterus and ovaries. Urinary bladder appears negative. IMPRESSION: 1. Findings suggest inflammatory process in the pelvis. 2. Normal appendix. US transvaginal INDICATION / CLINICAL INFORMATION: pelvic. COMPARISON: CT done earlier today. FINDINGS: Only transvaginal imaging was performed. Uterus is grossly negative on this limited exam. Endometrial stripe measures 1.3 cm in thickness and is moderately echogenic, which would be normal in the proliferative phase of this young patient's cycle. Both ovaries are unremarkable. Left ovary contains several small cysts, thought to represent follicular cysts. Color Doppler imaging shows normal vascular flow in each ovary. There is a very small amount of free fluid in the pelvis. IMPRESSION: 1. Exam is thought to be within normal limits. I do not see evidence of pelvic inflammatory change, as was suggested on CT. - Medical Decision Making Patient is a 25-year-old female that presents emergency room with complaints of abdominal pain. Patient's abdominal pain is in the lower abdomen. Patient had labs done which were essentially unremarkable. Patient's UA was negative. Patient had a CT scan of the abdomen which shows finding consistent with PID. Patient then had a ultrasound to rule out a tubal abscess and was negative for acute findings. Patient stable for discharge. Patient given Rocephin in the ER. Patient also given 14 days of doxycycline to cover PID. Patient given discharge instructions. Patient need to follow-up with [facility] and her primary care. Patient is stable for discharge. - Differential Diagnosis Ovarian cyst, PID, UTI, abdominal pain, appendicitis Critical care attestation.: If time is entered above; I have spent that time in minutes in the direct care of this critically ill patient, excluding procedure time. ED Disposition Clinical Impression: PID (acute pelvic inflammatory disease) Abdominal pain Qualifiers: Abdominal location: lower abdomen, unspecified Qualified Code(s): R10.30 - Lower abdominal pain, unspecified Cyst of ovary Qualifiers: Laterality: left Qualified Code(s): N83.202 - Unspecified ovarian cyst, left side Disposition: TO HOME OR SELFCARE Is pt being admited?: No Does the pt Need Aspirin: No Condition: Stable Instructions: Pelvic Inflammatory Disease, [id number], Abdominal Pain (ED), Ovarian Cyst, [id number] Additional Instructions: Patient to follow-up with primary care in 2 to 3 days. Patient to follow-up with [facility] in 2 to 3 days. Patient to rest. Patient to increase water. Patient to avoid strenuous exercise or heavy lifting until cleared by [facility]. No sexual activity until cleared by [facility]. Nothing per vagina until cleared by [facility]. Patient to take Tylenol or ibuprofen as needed for pain. Patient to take meds as directed. Patient to return to the ER if condition worsens, changes or new symptoms arise. Prescriptions: Doxycycline Hyclate [Doxycycline Hyclate TAB] 100 mg PO Q12HR 14 Days #28 tab Acetaminophen/Codeine [Tylenol /Codeine # 3 tab] 1 tab PO Q6H PRN #10 tab PRN Reason: Pain , Severe (7-10) Referrals: PRIMARY CARE, [Primary Care Provider] - 2-3 Days BERNARDA CHUN MD [Staff Physician] - 2-3 Days Time of Disposition: 03:35
[2020-12-31 23:24] LABS: Basophils # (Auto) 0.1 K/mm3 (0.0-0.1); Eosinophils # (Auto) 0.3 K/mm3 (0.0-0.4); Eosinophils % (Auto) 3.7 % (0.0-4.3); Hematocrit 39.9 % (30.3-42.9); Hemoglobin 13.1 gm/dl (10.1-14.3); Lymphocytes # (Auto) 2.1 K/mm3 (1.2-5.4); Lymphocytes % (Auto) 22.2 % (13.4-35.0); Mean Corpuscular HGB Conc 33 % (30-34); Mean Corpuscular Volume 85 fl (79-97); Monocytes # (Auto) 0.5 K/mm3 (0.0-0.8); Monocytes % (Auto) 4.9 % (0.0-7.3); Platelet Count 345 K/mm3 (140-440); Red Blood Count 4.69 M/mm3 (3.65-5.03); Red Cell Distribution Width 12.3 % (13.2-15.2)
[2020-12-31 23:45] LABS: Alanine Aminotransferase 12 units/L (7-56); Albumin 5.2 g/dL (3.9-5); BUN/Creatinine Ratio 14; Blood Urea Nitrogen 13 mg/dL (7-17); Calcium 9.9 mg/dL (8.4-10.2); Hemolysis Index 21
[2020-12-31 23:54] LABS: Bilirubin,Direct < 0.2 mg/dL (0-0.2)
[2021-01-01] MEDS ORDERED: HYDROmorphone 1 MG/1 ML INJ IV ONE (00:49)
--- NOTE | 2021-01-01 01:04 | Cat Scan Report ---
CT abdomen pelvis w con INDICATION: Patient complains of R.L.Q. abdominal pain. TECHNIQUE: All CT scans at this location are performed using CT dose reduction for ALARA by means of automated e xposure control. COMPARISON: None available. FINDINGS: Lung bases are clear of acute disease. Liver, gallbladder, spleen, pancreas, kidneys and adrenals zohra ear negative. Abdominal aorta is normal in size. No adenopathy. Pelvis Normal appendix. Moderate free fluid in the lower pelvis, with indistinct margins of the uterus and o varies. Urinary bladder appears negative. IMPRESSION: 1. Findings suggest inflammatory process in the pelvis. 2. Normal appendix. Signer Name: Amilcar Fernandes MD Signed: 01/01/2021 12:59 AM Workstation Name: [id number]
[2021-01-01] MEDS ORDERED: cefTRIAXone/NS 1 GM/50 ML 1 GM/50 ML BAG IV ONE (01:45)
--- NOTE | 2021-01-01 03:27 | Ultrasound Report ---
US transvaginal INDICATION / CLINICAL INFORMATION: pelvic. COMPARISON: CT done earlier today. FINDINGS: Only transvaginal imaging was performed. Uterus is grossly negative on this limited exam. Endometrial stripe measures 1.3 cm in thickness and is moderately echogenic, which would be normal in the prolif erative phase of this young patient's cycle. Both ovaries are unremarkable. Left ovary contains several small cysts, thought to represent follicul ar cysts. Color Doppler imaging shows normal vascular flow in each ovary. There is a very small amoun t of free fluid in the pelvis. IMPRESSION: 1. Exam is thought to be within normal limits. I do not see evidence of pelvic inflammatory change, a s was suggested on CT. Signer Name: Amilcar Fernandes MD Signed: 01/01/2021 3:23 AM Workstation Name: [id number]
[2021-01-01 04:51] VITALS: BP 110/78
== END 2021-01-01 03:45 | disposition home or self-care (01) ==
LOC: ED 19:45
DX: N73.9 Female pelvic inflammatory disease, unspecified (principal); N83.292 Other ovarian cyst, left side; G40.909 Epilepsy, unspecified, not intractable, without status epilepticus; J45.909 Unspecified asthma, uncomplicated; Z79.899 Other long term (current) drug therapy; Z91.013 Allergy to seafood
CPT/HCPCS: 36415; 74177; 76830; 80048; 80076; 81001; 81025; 85025; 96361; 96365; 96375; 96376; 99284; J0696; J1170; J7030; Q9967